=== PATIENT | female | born 1990 | race Caucasian/White ===

== ENCOUNTER 2024-05-30 16:15 | Emergency (ER) | payer OTHER ==
[~2024-05-30] VITALS: Ht 172.7 cm; Wt 73.8 kg
[2024-05-30] MEDS ORDERED: ondansetron HCL 4 MG/2 ML VIAL ONE (16:43)
[2024-05-30] MEDS ORDERED: SODIUM CHLORIDE 0.9% 1,000 ML IV ONE (16:45)
[2024-05-30] MEDS ORDERED: HYDROmorphone HCL 1 MG/ML SYR IV PRN (16:45)
[2024-05-30] MEDS ORDERED: DAPTOmycin 500 MG/10 ML VIAL IV ONE (16:45)
[2024-05-30] MEDS ORDERED: ACETAMINOPHEN 500 MG TAB PO ONE (16:45)
[2024-05-30] MEDS ORDERED: CEFTRIAXONE/SODIUM CHLORIDE 2 GM/100 ML PIGGYBACK IV ONE (16:45)
[2024-05-30 16:48] LABS: BASOPHILS 0.2 % (0-2); EOSINOPHILS 0.3 % (0-6); HEMATOCRIT 38.6 % (35.0-50.0); MCH 30.7 (27-36); MCHC 33.7 g/dl (30-36); MONOCYTES 6.8 % (0-12); NEUTROPHILS 88.7 % (39-80); PLATELET COUNT 126 K/uL (140-440); RBC 4.25 M/ul (4.3-5.7); RDW 14.1 (10.5-15.0)
[2024-05-30] MEDS ORDERED: ondansetron HCL 4 MG/2 ML VIAL IV ONE (17:00)
[2024-05-30 17:02] LABS: ALBUMIN 3.6 g/dL (3.4-5.0); ALBUMIN/GLOBULIN RATIO 0.9 (1.1-2.4); ANION GAP 14.1 (7-21); BUN/CREATININE RATIO 16.85 (6.0-28.6); CALCIUM 9.1 mg/dL (8.5-10.1); CREATININE, SERUM 0.89 mg/dL (0.55-1.02); POTASSIUM 3.1 mmol/L (3.5-5.1); PROTEIN, TOTAL 7.6 g/dL (6.4-8.2)
[2024-05-30 17:10] LABS: LACTIC ACID, BLOOD 1.1 mmol/L (0.4-2.0)
[2024-05-30 17:25] LABS: BILIRUBIN, URINE NEGATIVE (negative); BLOOD/HGB, URINE TRACE-L (Negative); KETONE, URINE SMALL (Negative); LEUK ESTERASE, URINE NEGATIVE (negative); NITRITE, URINE NEGATIVE (negative); PH, URINE 6.5 (5-7)
[2024-05-30] MEDS ORDERED: fentaNYL citrate 100 MCG/2 ML VIAL IV PRN (17:30)
[2024-05-30 17:31] LABS: EPITHELIAL CELLS, URINE SQUAMOUS 1+ /lpf (0-1+)
[2024-05-30 17:32] LABS: BACTERIA, URINE RARE /hpf (negative); CASTS, URINE NONE SEEN \\lpf; COLLECTION TYPE, URINE CLEAN CATCH; CRYSTALS, URINE NONE SEEN (0-1+); REFLEX CULTURE, URINE No (No)
[2024-05-30] MEDS ORDERED: LORazepam 2 MG/ML VIAL IV PRN (17:45)
[2024-05-30] MEDS ORDERED: BACTRIM DS TAB1 EACH PO (19:10)
[2024-05-30 19:18] VITALS: BP 98/66
== END 2024-05-30 19:18 | disposition home or self-care (01) ==
LOC: ED 16:15
PROVIDERS: Emergency Medicine
DX: N61.0 Mastitis without abscess (principal)
CPT/HCPCS: 36415; 71045; 76642; 80053; 81001; 83605; 84703; 85025; 96365; 96375; 96376; 99284-25; A9270; J0696; J0878; J2060; J2405; J3010; J7030

== ENCOUNTER 2025-01-18 17:44 | Emergency (ER) | payer OTHER ==
[~2025-01-18] VITALS: Ht 172.7 cm; Wt 86.0 kg
[~2025-01-18 17:44] MED LIST: BACTRIM DS TAB1 EACH PO
[2025-01-18 18:34] LABS: BASOPHILS 0.6 % (0.1-1.2); EOSINOPHILS 1.5 % (0.7-5.8); HEMOGLOBIN 13.3 g/dL (11.2-15.7); LYMPHOCYTES 34.6 % (19.3-51.7); MCH 29.7 PG (25.6-32.2); MCHC 32.4 g/dL (32.2-35.5); MCV 91.5 fL (79.4-94.8); MONOCYTES 6.1 % (4.7-12.5); PLATELET COUNT 251 K/uL (182-369); RBC 4.48 M/uL (3.93-5.22)
[2025-01-18] MEDS ORDERED: DAPTOmycin 500 MG/10 ML VIAL IV ONE (18:45)
[2025-01-18] MEDS ORDERED: metroNIDAZOLE/SODIUM CHLORIDE 500 MG/100 ML PIGGYBACK IV ONE (18:45)
[2025-01-18 18:51] LABS: ALBUMIN 3.9 g/dL (3.4-5.0); ALBUMIN/GLOBULIN RATIO 0.85 (1.1-2.4); ANION GAP 10.2 (7-21); BILIRUBIN, TOTAL 0.1 mg/dL (0.2-1.0); BUN/CREATININE RATIO 18.51 (6.0-28.6); CALCIUM 9.4 mg/dL (8.5-10.1); CREATININE, SERUM 0.81 mg/dL (0.55-1.02); POTASSIUM 3.2 mmol/L (3.5-5.1); PROTEIN, TOTAL 8.5 g/dL (6.4-8.2)
[2025-01-18 20:09] VITALS: BP 129/84
== END 2025-01-18 20:10 | disposition home or self-care (01) ==
LOC: ED 17:44
PROVIDERS: Emergency Medicine
DX: N61.1 Abscess of the breast and nipple (principal); Z79.2 Long term (current) use of antibiotics
CPT/HCPCS: 36415; 76642; 80053; 84703; 85025; 87070; 87075; 87186; 87205; 96365; 96375; 99284-25; J0878